=== PATIENT | female | born 1980 | race American Indian/Alaskan Native ===

== ENCOUNTER 2016-12-21 09:19 | Emergency (ER) | payer OTHER ==
[2016-12-21 09:20] VITALS: BMI 29.2
[2016-12-21 09:43] VITALS: RESP 18
--- NOTE | 2016-12-21 11:13 | C.PDOC ---
Time Seen by Provider: 12/21/16 09:59 Chief Complaint (Nursing): Cough, Cold, Congestion History Per: Patient Onset/Duration Of Symptoms: Days (3) Current Symptoms Are (Timing): Still Present Associated Symptoms: Fever, Sore Throat, Cough, Sputum Severity: Moderate Additional History Per: Prior Records Past Medical History Reviewed: Historical Data, Nursing Documentation, Vital Signs Vital Signs: Last Vital Signs Temp 98.7 F 12/21/16 09:38 Pulse 64 12/21/16 09:38 Resp 18 12/21/16 09:38 BP 87/61 L 12/21/16 09:38 Pulse Ox 99 12/21/16 09:38 - Medical History PMH: Anemia Surgical History: No Surg Hx - [facility] Procedures ASPIRAT CURET-POST DELIV (02/03/13) Family History: States: Unknown Family Hx - Social History Hx Tobacco Use: No Hx Alcohol Use: No Hx Substance Use: No - Immunization History Hx Tetanus Toxoid Vaccination: No Hx Influenza Vaccination: No Hx Pneumococcal Vaccination: No Review Of Systems Except As Marked, All Systems Reviewed And Found Negative. Constitutional: Negative for: Weakness ENT: Positive for: Throat Pain Cardiovascular: Negative for: Chest Pain Respiratory: Positive for: Cough. Negative for: Shortness of Breath, Hemoptysis Gastrointestinal: Negative for: Vomiting, Abdominal Pain Genitourinary: Negative for: Dysuria Musculoskeletal: Negative for: Neck Pain, Back Pain Skin: Negative for: Rash Neurological: Negative for: Weakness, Numbness, Seizures, Altered Mental Status , Headache Physical Exam - Physical Exam Appears: Non-toxic, No Acute Distress Skin: Normal Color, Warm, Dry, No Rash Head: Atraumatic, Normacephalic Eye(s): bilateral: PERRL, EOMI Ear(s): Bilateral: Normal Oral Mucosa: Moist, No Drooling, No Trismus Tongue: Normal Appearing Lips: Normal Appearing Throat: Erythema, No Exudate, No Drooling, No Mass Neck: Normal ROM, Supple Cardiovascular: Rhythm Regular Respiratory: Normal Breath Sounds, No Accessory Muscle Use, No Stridor Gastrointestinal/Abdominal: Soft, No Tenderness, No Organomegaly Back: No CVA Tenderness Extremity: Normal ROM Neurological/Psych: Oriented x3, No Normal Speech (hoarse), Normal Motor, Normal Sensation ED Course And Treatment - Laboratory Results Interpretation Of Abnormal: Rapid strep negative O2 Sat by Pulse Oximetry: 99 Pulse Ox Interpretation: Normal Reassessment Condition: Improved Disposition Counseled Patient/Family Regarding: Studies Performed, Diagnosis, Need For Followup, Rx Given - Disposition Referrals: Denisse Spain MD [Medical Doctor] - Disposition: HOME/ ROUTINE Disposition Time: 11:14 Condition: IMPROVED Additional Instructions: Drink plenty of fluids. Follow up with your doctor for further evaluation and treatment. Return to the ER if you develop trouble breathing or swallowing, lethargy, worsening of symptoms or if you have any other concerns. Prescriptions: Benzonatate 200 mg PO TID PRN #15 capsule PRN Reason: Cough Ibuprofen [Motrin Tab] 600 mg PO TID PRN #15 tab PRN Reason: Fever >100.4 F Instructions: Upper Respiratory Infection (ED) - Clinical Impression Clinical Impression: Upper respiratory infection
[2016-12-21 11:29] VITALS: BP 118/69; PULSE 82; TEMP 98.5; O2SAT 97
== END 2016-12-21 11:30 | disposition home or self-care (01) ==
LOC: C.ER 09:19
DX: J06.9 Acute upper respiratory infection, unspecified (principal)

== ENCOUNTER 2017-03-04 16:10 | Emergency (ER) | payer SELFPAY ==
[2017-03-04 16:21] VITALS: BMI 27.6
[2017-03-04 16:25] VITALS: BP 110/78; PULSE 87; RESP 20; TEMP 98.7; O2SAT 100
--- NOTE | 2017-03-04 16:37 | C.PDOC ---
History Of Present Illness 36 y/o female presents to ED for evaluation on wart noted on right frontal scalp area. Patient reports, currently treating wart with over the counter medications but still noted scattered bleeding "when I comb my hair". Patient denies any other active physical complaints at this time. Ambulate to Ed for evaluation, not in any apparent distress. Time Seen by Provider: 03/04/17 16:26 Chief Complaint (Nursing): Abnormal Skin Integrity History Per: Patient History/Exam Limitations: no limitations Onset/Duration Of Symptoms: Days Location Of Injury: Right: Head Past Medical History Reviewed: Historical Data, Nursing Documentation, Vital Signs Vital Signs: Last Vital Signs Temp 98.7 F 03/04/17 16:22 Pulse 87 03/04/17 16:22 Resp 20 03/04/17 16:22 BP 110/78 03/04/17 16:22 Pulse Ox 100 03/04/17 16:45 - Medical History PMH: Anemia - [facility] Procedures ASPIRAT CURET-POST DELIV (02/03/13) Family History: States: Unknown Family Hx - Social History Hx Tobacco Use: No Hx Alcohol Use: No Hx Substance Use: No - Immunization History Hx Tetanus Toxoid Vaccination: No Hx Influenza Vaccination: No Hx Pneumococcal Vaccination: No Review Of Systems Except As Marked, All Systems Reviewed And Found Negative. Constitutional: Negative for: Fever, Chills Skin: Positive for: Other (Wart) Neurological: Negative for: Headache Physical Exam - Physical Exam Appears: Well, Non-toxic, No Acute Distress Skin: Normal Color, Warm, Other ((+)0.5cm cauliflower skin growth on right frontal scalp, appears dry and no active bleeding with touch. no edmea, no flactulance, no tenderness.) Head: Atraumatic, Normacephalic Neurological/Psych: Oriented x3, Normal Speech ED Course And Treatment O2 Sat by Pulse Oximetry: 100 (RA) Pulse Ox Interpretation: Normal Progress Note: On re-eavluation, pt is afebrile, hemodynamicaly stable. Non- toxic. Pt has clinical findings c/w common wart to scalp area. Pt advised and ref. to F/u with Derm in 2-3 days for re-evaluation. Return to ED if any worsening or new changes. 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 - Scribe Statement The provider has reviewed the documentation as recorded by the Cotyibtony Jimenez All medical record entries made by the Vidal were at my direction and personally dictated by me. I have reviewed the chart and agree that the record accurately reflects my personal performance of the history, physical exam, medical decision making, and the department course for this patient. I have also personally directed, reviewed, and agree with the discharge instructions and disposition.
== END 2017-03-04 16:44 | disposition home or self-care (01) ==
LOC: C.ER 16:10
DX: B07.8 Other viral warts (principal)